=== PATIENT | male | born 1960 | race Caucasian/White ===

== ENCOUNTER 2020-07-18 10:26 | Emergency (ER) | payer BC, SELFPAY ==
--- NOTE | ~2020-07-18 | CT_ITS ---
EXAMINATION: CT abdomen pelvis wo con DATE: 07/18/2020 10:59 INDICATION: Flank pain TECHNIQUE: Computed tomography (CT) of the abdomen and pelvis was performed without intravenous contr ast. The dose-length product (DLP) was 740.86 mGy-cm. Automated exposure control and iterative recons truction technique were employed. COMPARISON: None FINDINGS: Minimal dependent atelectasis is present in the lung bases. The heart size is normal. The l iver, spleen, pancreas, gallbladder, and adrenal glands are normal. There is a 2 mm stone in the dist al left ureter which causes mild left hydroureteronephrosis. There are punctate nonobstructing stones in both kidneys. No pathologically enlarged abdominal or pelvic lymph nodes are identified. There is calcified atherosclerosis of the aorta and many of the other arteries. There is no free intraperiton eal gas or evidence of bowel obstruction. There is mild lumbar spondylosis. IMPRESSION: 1. 2 mm stone of the distal left ureter causing mild left hydroureteronephrosis. 2. Bilateral nephrolithiasis. Reviewed, dictated and finalized at location A. EXPERT IMPRESSION: 1. 2 mm stone of the distal left ureter causing mild left hydroureteronephrosis . 2. Bilateral nephrolithiasis.
[2020-07-18 10:28] VITALS: BP 128/73; PULSE 57; RESP 18; TEMP 36.6; O2SAT 100
--- NOTE | 2020-07-18 10:41 | ED.ABDPAIN ---
HPI - Abdominal Pain General Chief Complaint: Abdominal Pain Stated Complaint: abd pain Time Seen by Provider: 07/18/20 10:27 History of Present Illness HPI narrative: Severe left flank pain for about the past 30 mintues. Radiates to the LLQ. Worse with movement. Associated with nausea. He has never had this pain before. Related Data Allergies Allergy/AdvReac Type Severity Reaction Status Date / Time No Known Allergies Allergy Unverified 04/21/20 09:19 Review of Systems Review of Systems: All systems reviewed & are unremarkable except as noted in HPI and below Constitutional: Constitutional: Denies fever(s) ENT: Denies dizziness Cardiovascular: Cardiovascular: Denies chest pain Respiratory: Respiratory: Denies dyspnea Gastrointestinal: Gastrointestinal: Reports abdominal pain, Denies constipation, Denies diarrhea, Reports nausea and Denies vomiting Genitourinary: Genitourinary: Denies hematuria and Denies dysuria Musculoskeletal: Musculoskeletal: Reports back pain Neurologic: Denies dizziness and Denies weakness PMFSH Past Medical History Medical History Gout Hypertension Family History Family History Mother Asthma Social History Social History Smoking status: Never smoker Second hand tobacco smoke exposure: No Alcohol intake: never Substance use: never Substance use type: does not use Gender identity (if verbalized by the patient): Male Exam Const: General: healthy appearing, no acute distress and alert Orientation/consciousness: patient oriented x3 HENMT: Head: normal to inspection Neck: Neck: normal visual inspection Resp: Effort & Inspection: normal respiratory effort Auscultation: clear to auscultation bilaterally, no rales, no rhonchi and no wheezes Cardio: Jugular venous distension: no JVD Rate: regular rate Rhythm: regular rhythm Heart sounds: no murmurs GI: Inspection: non-distended GI Palp: Yes Soft to palpation and Yes Tenderness to palpation present (GI) : General: Yes no CVA tenderness Skin: General skin exam: normal color Neuro: General: patient oriented x3 and moves all extremities Speech: normal speech Extrem: General: no edema Psych: Appearance: well kempt Affect: normal affect Course Vital Signs Vital signs: Vital Signs Temperature 36.6 C 07/18/20 10:28 Pulse Rate 57 L 07/18/20 10:28 Respiratory Rate 18 07/18/20 10:28 Blood Pressure 128/73 07/18/20 10:28 Pulse Oximetry 100 07/18/20 10:28 Temperature 36.6 C 07/18/20 10:28 Pulse Rate 80 07/18/20 12:35 Respiratory Rate 16 07/18/20 12:35 Blood Pressure 132/68 07/18/20 12:35 Pulse Oximetry 99 07/18/20 12:35 MDM - Abdominal Pain MDM Narrative Medical decision making narrative: Small distal stone. No indication of infection. Should be okay to pass at home. Medical Records Attestation: I reviewed the patient's medical records. Lab Data Attestation: I reviewed the patient's lab results. Result diagrams: 07/18/20 10:43 07/18/20 10:43 Labs: Lab Results 07/18/20 07/18/20 07/18/20 Range/Units 10:43 10:43 10:43 WBC 5.1 (4.5-10.0) K/mm3 RBC 5.25 (4.6-6.20) M/mm3 Hgb 14.2 (14.0-18.0) g/dL Hct 44.8 (42.0-52.0) % MCV 85.3 (80-100) fl MCH 27.0 (26-34) pg MCHC 31.7 L (32-36) g/dl RDW 14.6 H (11.5-14.5) % Plt Count 205 (150-375) k/mm3 MPV 9.9 (7.4-10.4) fl Immature Gran % (Auto) 0.4 (0-0.5) % Neut % (Auto) 49.1 (45.5-73.1) % Lymph % (Auto) 40.1 (18.3-44.2) % [place] % (Auto) 8.2 (2.6-8.5) % Eos % (Auto) 1.8 (0-4.4) % Baso % (Auto) 0.4 (0.2-1.2) % Lymph # (Auto) 2.06 (0.9-3.2) K/mm3 [place] # (Auto) 0.4 (0.1-0.6) K/mm3 Eos # (Auto) 0.1 (0-0.3) K/mm3 Baso # (Auto) 0.0
[2020-07-18 10:52] LABS: Basophils Percent Auto 0.4 % (0.2-1.2); Eosinophils Absolute Auto 0.1 K/mm3 (0-0.3); Eosinophils Percent Auto 1.8 % (0-4.4); Hematocrit 44.8 % (42.0-52.0); Hemoglobin 14.2 g/dL (14.0-18.0); Immature Granulocyte Absolute 0.02 K/mm3 (0.00-0.031); Immature Granulocyte Percent A 0.4 % (0-0.5); Lymphocytes Absolute Auto 2.06 K/mm3 (0.9-3.2); Lymphocytes Percent Auto 40.1 % (18.3-44.2); Mean Corpuscular HGB Conc 31.7 g/dl (32-36); Mean Corpuscular Volume 85.3 fl (80-100); Mean Platelet Volume 9.9 fl (7.4-10.4); Monocytes Absolute Auto 0.4 K/mm3 (0.1-0.6); Monocytes Percent Auto 8.2 % (2.6-8.5); Neutrophils Absolute Auto 2.5 K/mm3 (1.3-6.7); Neutrophils Percent Auto 49.1 % (45.5-73.1); Platelet Count Result 205 k/mm3 (150-375); Red Blood Count 5.25 M/mm3 (4.6-6.20); Red Cell Distribution Width 14.6 % (11.5-14.5); White Blood Count 5.1 K/mm3 (4.5-10.0)
[2020-07-18 10:54] LABS: Add Urine Microscopic? NO; Appearance Urine Clear (Clear); Bilirubin Urine Negative (Negative); Blood Urine Negative (Negative); Color Urine Yellow (Yellow); Glucose Urine UA Negative (Negative); Ketones Urine Negative (Negative); Leukocyte Esterase Ur Negative LEU/UL (Negative); Nitrate Urine Negative (Negative); Protein Urine Negative (Negative); Specific Grav Ur 1.017 (1.001-1.035); Urobilinogen Urine Negative mg/dL (<2.0)
[2020-07-18 11:06] LABS: Alanine Aminotransferase 30 U/L (4-50); Albumin Level 4.7 g/dL (3.5-5.1); Alkaline Phosphatase 77 U/L (38-126); Anion Gap 8 mmol/L (8-16); Aspartate Amino Transferase 33 U/L (17-59); Bilirubin,Total 0.5 mg/dL (0.2-1.3); Blood Urea Nitrogen 17 mg/dL (9-20); Calcium 9.6 mg/dL (8.4-10.2); Carbon Dioxide 23 mmol/L (22-30); Chloride 111 mmol/L (98-107); Estimated CRCL calculation 50 ml/min; Estimated Glomerular Filt Rate 48; Glucose 118 mg/dL (75-110); Lipase 219 U/L (23-300); Sodium 142 mmol/L (137-145)
[2020-07-18] MEDS: fentaNYL CITRATE INJ (*CRX) 100 MCG/2 ML VIAL 50 MCG IV PUSH (11:41)
[2020-07-18] MEDS: SODIUM CHLORIDE 0.9% IV 1,000 ML 999 ML IV CONT (11:42)
[2020-07-18] MEDS: KETOROLAC 30 MG/ML VIAL (*BKC) IV PUSH (11:42)
[2020-07-18 12:35] VITALS: BP 132/68; PULSE 80; RESP 16; O2SAT 99
== END 2020-07-18 12:36 | disposition home or self-care (01) ==
PROVIDERS: Emergency Provider Emergency Medicine; PCP Family Medicine
DX: N13.2 Hydronephrosis with renal and ureteral calculous obstruction (principal); I10 Essential (primary) hypertension; M10.9 Gout, unspecified
CPT/HCPCS: 36415; 74176; 80053; 81003; 83690; 85025; 96361; 96374; 96375; 99284; J1885; J3010; J7030

== ENCOUNTER → 2021-06-02 16:06 | Outpatient (CLI) | payer BC, SELFPAY ==
--- NOTE | ~2021-06-02 | XR_ITS ---
EXAMINATION: XR lumbar spine 2-3V DATE: 06/02/2021 17:10 INDICATION: Low back pain, unspecified. TECHNIQUE: 3 views of lumbar spine were obtained. COMPARISON: CT abdomen and pelvis 07/18/2020 FINDINGS: There is 5 degrees levocurvature of thoracolumbar spine. Vertebral body heights and interve rtebral disc heights are normal. There are endplate osteophytes at multiple levels. There is multilev el facet joint osteoarthritis, severe bilaterally at L4-L5. IMPRESSION: 1. Mild lumbar spondylosis. Reviewed, dictated and finalized at location A. LLECTUAL PROPERTY LEGAL ASSISTANT IMPRESSION: 1. Mild lumbar spondylosis.
== END ==
PROVIDERS: PCP Family Medicine; Visit Provider Family Medicine
DX: M54.50 Low back pain, unspecified (principal); G89.29 Other chronic pain; M47.816 Spondylosis without myelopathy or radiculopathy, lumbar region
CPT/HCPCS: 72100

== ENCOUNTER 2021-08-05 08:00 | Outpatient (RCR) | payer BC, SELFPAY ==
--- NOTE | 2021-07-11 09:54 | PTOPEVAL ---
PHYSICAL THERAPY EVALUATION AND PLAN OF CARE 07-11-21 Thank you for referring Bernardo Nguyen to [facility] [place] for the diagnosis of back pain. Tam is scheduled to be seen for therapy? 2 x/week for 3 weeks. Please review, sign, date and return this plan of care JUSTINE. I agree with and certify that the following plan of care is medically necessary. Referring Physician Date Attending Provider: Alf To MD PT Outpatient Evaluation Document 07/11/21 08:10 JOHN (Rec: 07/11/21 09:05 JOHN [id number]) Past Medical History Source of Past Medical History Patient Neurological History Hx Neurological Disorders No Significant History Cardiovascular History Hx Hypertension Yes: meds control Respiratory History Hx Respiratory Disorders No Significant History Gastrointestinal History Hx Gastrointestinal Disorders No Significant History Genitourinary History Hx Genitourinary Disorders No Significant History Musculoskeletal History Hx Back Pain Yes: intermittent back pain, last few days only in past Hx Gout Yes: meds Endocrine History Hx Endocrine Disorders No Significant History HEENT History Hx HEENT Disorders No Significant History Evaluation Information Problem Diagnosis low back pain Onset Feb 2021 Subjective Information gradual increase in pain, Query Text:As Reported By Patient/ after vacation last Feb- Family walking in [place] and driving more; no trauma of injury to back; Diagnostic Tests X-Rays For This Problem Yes: severe B L4-5 facet jt OA ,levocurvature thoraco-lumbar Prior Level of Function Activity Level (Last 3 Months) Occupation software systems architect- computer all day Hand Dominance Right Activity of Daily Living Ability Independent Indoor/Home Mobility Independent Community Mobility Independent Stairs Ability Independent Functional Cognition (Planning, Shopping Independent , Taking Medications) Cooking Yes Cleaning Yes Laundry Yes Shopping Yes Driving Yes Comments Additional Prior Level of Function can do all home and work tasks Comments ; increase pain with activity Pain Assessment Timing of Pain Assessment Timing of Pain Assessment Assessment Pain Scale Pain Scale Used Numeric (1 - 10) Self Report Pain Assessment Bilateral Back Reported Pain Level 2 Pain Description Dull Pain Radiation
--- NOTE | 2021-08-05 08:51 | PTOPEVAL ---
PHYSICAL THERAPY DISCHARGE 08-05-21 Refer to the clinical summary below, for his status today, compared to the initial eval. The goals were partially achieved. He is to continue with his home exercises and monitor his posture/position to manage his back and radicular, LE pain. Thank you for referring Bernardo Nguyen to [facility].? Please review, sign, date and return this Discharge report JUSTINE. I agree with and certify that the following plan of care is medically necessary. Referring Physician Date Attending Provider: Alf To MD Assessment Status Discharge Subjective Information Bill reports: have not Query Text:As Reported By Patient/ noticed any difference in the Family back; is worse in the morning when first get up; have changed from working at home to working at the office; standing exercises at home tend to make pain worse--like pain usual with standing; have not used [place] [employer] yet; work desk is in good position and good chair; has not gotten an exercise ball yet; agrees to d/c from PT and continue with exercises at home; to call dr if any needs. Pain Assessment Timing of Pain Assessment Timing of Pain Assessment Assessment Pain Scale Pain Scale Used Numeric (1 - 10) Self Report Pain Assessment Bilateral Back Reported Pain Level 0 Radicular Pain Location post R and L to mid thigh and anterior hip- pain and feel it there Pain Frequency Chronic,Intermittent Other Pain Description catch in R hip; tightness and pulling over thighs Lowest Pain Intensity 0 Greatest Pain Intensity 3 Other Pain Aggravating Factors getting up from sitting to standing- after first few steps is OK;in AM Pain Score Pain Score 0: Self Report Additional Pain Score Comments Oswestry self assessment functional score of 16% limitation in activity with standing still 10-15 min start to feel, and have to walk, move; Interventions Used Interventions Used By Clinicians Education,Exercise Pain Relief Interventions Used By Heat,Inactivity/Rest,Sitting Patient Other Alleviating Interventions no meds for back- over the counter meds not shanice
== END 2021-08-08 10:11 | disposition home or self-care (01) ==
LOC: ANHPT 08:00
PROVIDERS: PCP Family Medicine; Visit Provider Family Medicine
DX: M54.50 Low back pain, unspecified (principal); G89.29 Other chronic pain
CPT/HCPCS: 97014; 97110; 97140; 97161; 97530; G0283

== ENCOUNTER → 2021-09-14 16:04 | Outpatient (CLI) | payer BC, SELFPAY ==
--- NOTE | ~2021-09-14 | XR_ITS ---
EXAMINATION: XR hip RT min 2V DATE: 09/14/2021 16:18 INDICATION: Right hip pain TECHNIQUE: Two views of right hip were obtained. COMPARISON: None. FINDINGS: Bone alignment is normal. There is no fracture. Mild osteoarthritis is noted. The soft tiss ues are normal. IMPRESSION: 1. Mild osteoarthritis. Reviewed, dictated and finalized at location B. IMPRESSION: 1. Mild osteoarthritis.
== END ==
PROVIDERS: Visit Provider Nurse Practitioner Family
DX: M16.11 Unilateral primary osteoarthritis, right hip (principal)
CPT/HCPCS: 73502

== ENCOUNTER → 2021-09-27 14:46 | Outpatient (CLI) | payer BC, SELFPAY ==
--- NOTE | ~2021-09-27 | US_ITS ---
EXAMINATION: US soft tissue groin RT DATE: 09/27/2021 15:14 INDICATION: Right groin pain. TECHNIQUE: Multiple grayscale and Doppler ultrasound images of the region of concern at the right michael in were obtained. COMPARISON: None FINDINGS: There are few normal-sized right inguinal lymph nodes with prominent central fatty negrita. No abnormal masses or fluid collections identified. Mildly increased amount of fat along the right spermatic cord at the inguinal canal which appears similar to findings on prior CT which was relatively symmetric w ith a small amount of fat in the left inguinal canal. This could represent either small fat-containin g inguinal hernia or physiologic increased fat related to body habitus. IMPRESSION: 1. Mild increased fat along the spermatic cord at the right inguinal canal unchanged since 07/18/2020 which could be either related to body habitus or potentially a small inguinal hernia. Reviewed, dictated and finalized at location B. IMPRESSION: 1. Mild increased fat along the spermatic cord at the right inguinal canal unch anged since 07/18/2020 which could be either related to body habitus or potentia lly a small inguinal hernia.
== END ==
PROVIDERS: PCP Family Medicine; Visit Provider Nurse Practitioner Family
DX: R10.31 Right lower quadrant pain (principal)
CPT/HCPCS: 76882